=== PATIENT | female | born 1960 | race Caucasian/White ===

== ENCOUNTER 2018-04-05 21:15 | Emergency (ER) | payer BC, MEDICAID ==
[~2018-04-05] VITALS: Ht 157.5 cm; Wt 90.7 kg
[2018-04-05 21:25] VITALS: BP 104/69
[2018-04-05] MEDS ORDERED: CEPHALEXIN500 MG ORAL (21:44)
--- NOTE | 2018-04-05 21:44 | Emergency Room Report ---
History of Present Illness General Chief Complaint: Female Urogenital Problems Source: Patient Present Illness HPI This is a 57-year-old female with history of Graves' disease. She presents with chief complaint of dysuria, frequency and urgency. Onset for last 3 days. She's been taking Azo [id number] without much relief. She started having hematuria tonight. Pain is worse with urination. No nausea no vomiting. No back pain. Similar symptom in the past. She has 3 previous UTI episode in her life. Allergies: Coded Allergies: No Known Allergies (Unverified , 04/05/18) Patient History Past Medical History: see triage record, old chart reviewed Past Surgical History: none Pertinent Family History: none Social History: Denies: smoking Last Menstrual Period: Menopausal Now: No Immunizations: other Reviewed Nursing Documentation: PMH: Agreed; PSxH: Agreed Nursing Documentation-PMH Past Medical History: No History, Except For Hx Hypertension: Yes Hx Neurological Problems: Yes - Damage in neck, back; Hx Seizures: Yes - Grand mal - last sz 2016; small sz 03/31/18 Review of Systems Eye: Denies: eye pain, blurred vision ENT: Denies: ear pain, nose congestion, throat swelling Respiratory: Denies: cough, shortness of breath Cardiovascular: Denies: chest pain, palpitations Gastrointestinal: Denies: abdominal pain, diarrhea, nausea, vomiting Genitourinary: Reports: dysuria, frequency, hematuria, pain, urgency Musculoskeletal: Denies: back pain, joint pain Skin: Denies: rash Neurological: Denies: headache, numbness Endocrine: Denies: increased thirst, increased urine Hematologic/Lymphatic: Denies: easy bruising All Other Systems: negative except mentioned in HPI Physical Exam Vital Signs Date Time Temp Pulse Resp B/P (MAP) Pulse Ox O2 Delivery O2 Flow Rate FiO2 04/05/18 21:24 98.9 91 19 104/69 96 Room Air 99.0 vitals normal Sp02 EP Interpretation: reviewed, normal General Appearance: well appearing, no apparent distress, alert Head: normocephalic, atraumatic Eyes: bilateral eye PERRL, bilateral eye EOMI ENT: hearing grossly normal, normal pharynx Neck: full range of motion, supple, no meningismus Respiratory: chest non-tender, lungs clear, normal breath sounds Cardiovascular #1: regular rate, rhythm, no murmur Gastrointestinal: normal bowel sounds, non tender, no mass, no organomegaly, no bruit, non-distended Musculoskeletal: back normal, gait/station normal, normal range of motion Psychiatric: mood/affect normal Skin: warm/dry Medical Decision Making Diagnostic Impression: Primary Impression: UTI (urinary tract infection) Qualified Codes: N30.01 - Acute cystitis with hematuria ER Course Patient with symptoms consistent with a UTI. No evidence of pyelonephritis is no sepsis. We'll discharge home. Dose of antibiotics given here. Last Vital Signs Date Time Temp Pulse Resp B/P (MAP) Pulse Ox O2 Delivery O2 Flow Rate FiO2 04/05/18 21:24 98.9 91 19 104/69 96 Room Air 99.0 Status: improved Disposition: HOME, SELF-CARE Condition: Stable Scripts Cephalexin* (KEFLEX*) 500 Mg Capsule 500 MG ORAL TID, #21 CAP Prov: KLAUS MEHTA M.D. 04/05/18 Patient Instructions: Urinary Tract Infection Additional Instructions: Follow-up with your doctor in 7 days. Return if symptom worsen. KLAUS MEHTA M.D. Apr 05, 2018 21:44
[2018-04-05] MEDS ORDERED: Cephalexin 500mg cap ORAL ONE (21:45)
[2018-04-05] MEDS ORDERED: Norco 5mg/325mg tab ORAL ONE (22:00)
[2018-04-05 22:03] VITALS: BP 104/69
[2018-04-05] MEDS ORDERED: ONDANSETRON ODT8 MG ORAL (22:06)
[2018-04-05 22:09] LABS: APPEARANCE,URINE SLIGHTLY CLOUDY; BILIRUBIN, URINE 2+ (NEGATIVE); COLOR,URINE ORANGE; GLUCOSE, URINE (UA) NEGATIVE (NEGATIVE); KETONES,URINE NEGATIVE (NEGATIVE); LEUKOCYTE ESTERASE ,URINE NEGATIVE (NEGATIVE); NITRITE,URINE POSITIVE (NEGATIVE); PH,URINE 5 (4.5-8.0); PROTEIN,URINE 2+ (NEGATIVE); UROBILINOGEN,URINE NORMAL MG/DL (0.0-1.0)
== END 2018-04-05 22:03 | disposition home or self-care (01) ==
LOC: EMR 21:38
DX: N30.01 Acute cystitis with hematuria (principal); R30.0 Dysuria; I10 Essential (primary) hypertension; G40.409 Other generalized epilepsy and epileptic syndromes, not intractable, without status epilepticus
CPT/HCPCS: 81003; 87086; 87181; 99283

== ENCOUNTER 2018-04-27 10:19 | Emergency (ER) | payer MEDICAID ==
[~2018-04-27] VITALS: Ht 157.5 cm; Wt 90.7 kg
[~2018-04-27 10:19] MED LIST: CEPHALEXIN500 MG ORAL; ONDANSETRON ODT8 MG ORAL
[2018-04-27 10:28] VITALS: BP 132/85
[2018-04-27] MEDS ORDERED: METFORMIN HCL1000 M1 ORAL (10:37)
[2018-04-27] MEDS ORDERED: LISINOPRIL10 MG ORAL (10:37)
[2018-04-27] MEDS ORDERED: ALPRAZOLAM1 MG ORAL (10:37)
[2018-04-27] MEDS ORDERED: GLIPIZIDE5 MG ORAL (10:37)
[2018-04-27] MEDS ORDERED: OXYCODONE HCL10 MG ORAL (10:37)
[2018-04-27] MEDS ORDERED: LYRICA75 M1 ORAL (10:37)
[2018-04-27] MEDS ORDERED: ZOLOFT100 MG ORAL (10:37)
[2018-04-27] MEDS ORDERED: LEVOTHYROXINE75 MCG ORAL (10:37)
--- NOTE | 2018-04-27 11:15 | Emergency Room Report ---
History of Present Illness General Chief Complaint: Medication Refill Source: Patient Present Illness HPI Ms. Gant is pleasant 57 yo female with history of insulin-dependent diabetes and depression who presents with request for medication refill. She needs refill of Zoloft 50 mg tablets. She lives in [place] she plans to be in [place] for the next 2 weeks. She also takes medication for chronic knee pain. She requests opioid medication. She is unable to recall the name of this medication. Allergies: Coded Allergies: No Known Allergies (Unverified , 04/05/18) Patient History Reviewed Nursing Documentation: PMH: Agreed; PSxH: Agreed Nursing Documentation-PM Past Medical History: No History, Except For Hx Hypertension: Yes Hx Neurological Problems: Yes - Damage in neck, back; Hx Seizures: Yes - Grand mal - last sz 2016; small sz 03/31/18 Review of Systems Constitutional: Reports: malaise; Denies: fever Cardiovascular: Denies: chest pain Musculoskeletal: Denies: back pain Physical Exam Vital Signs Date Time Temp Pulse Resp B/P (MAP) Pulse Ox O2 Delivery O2 Flow Rate FiO2 04/27/18 10:22 97.7 61 19 132/85 97 Room Air 97.7 Sp02 EP Interpretation: reviewed, normal General Appearance: no apparent distress, alert, GCS 15, non-toxic Head: normocephalic, atraumatic Eyes: bilateral eye normal inspection ENT: hearing grossly normal, normal pharynx, no angioedema, normal voice Neck: full range of motion, supple/symm/no masses Respiratory: chest non-tender, lungs clear, normal breath sounds, speaking full sentences Cardiovascular #1: regular rate, rhythm, no edema Cardiovascular #2: 2+ carotid (R), 2+ carotid (L), 2+ radial (R), 2+ radial (L) , 2+ dorsalis pedis (R), 2+ dorsalis pedis (L) Gastrointestinal: normal bowel sounds, non tender, soft, non-distended, no guarding, no rebound Genitourinary: normal inspection Musculoskeletal: back normal, gait/station normal, normal range of motion, non- tender, calf tenderness Neurologic: alert, oriented x3, responsive, motor strength/tone normal, sensory intact, speech normal Psychiatric: judgement/insight normal, memory normal, mood/affect normal, no suicidal/homicidal ideation Reflexes: 3+ bicep (R), 3+ bicep (L), 3+ tricep (R), 3+ tricep (L), 3+ knee (R) , 3+ knee (L) Skin: normal color, no rash, warm/dry, well hydrated Lymphatic: no adenopathy Medical Decision Making Diagnostic Impression: Primary Impression: Encounter for medication refill ER Course I did provide medication refill of Zoloft. I decline refill of opioid medication. Last Vital Signs Date Time Temp Pulse Resp B/P (MAP) Pulse Ox O2 Delivery O2 Flow Rate FiO2 04/27/18 10:22 97.7 61 19 132/85 97 Room Air 97.7 Status: unchanged Disposition: HOME, SELF-CARE Referrals: NON PHYSICIAN (PCP) Jody Jones MD Apr 27, 2018 11:15
[2018-04-27] MEDS ORDERED: SERTRALINE HCL50 MG ORAL (11:29)
[2018-04-27 11:40] VITALS: BP 135/83
[2018-04-27] MEDS ORDERED: TRAMADOL HCL50 MG ORAL (11:43)
== END 2018-04-27 11:40 | disposition home or self-care (01) ==
LOC: EMR 11:06
DX: Z76.0 Encounter for issue of repeat prescription (principal); F32.9 Major depressive disorder, single episode, unspecified; E11.9 Type 2 diabetes mellitus without complications; G89.29 Other chronic pain; M25.569 Pain in unspecified knee; Z79.4 Long term (current) use of insulin; Z79.891 Long term (current) use of opiate analgesic
CPT/HCPCS: 99282